=== PATIENT | female | born 1970 | race Two or more races ===

== ENCOUNTER 2017-12-25 12:59 | Emergency (ER) | payer MEDICARE, OTHER ==
[~2017-12-25] VITALS: Ht 167.6 cm; Wt 65.8 kg
[2017-12-25 13:06] VITALS: BP 137/97
--- NOTE | 2017-12-25 13:43 | NUR ---
CALLED FOR FOOD TRAY
[2017-12-25] MEDS ORDERED: IBUPROFEN 600 MG TABLET PO ONE ×2 (14:11→14:30)
== END 2017-12-25 16:08 | disposition home or self-care (01) ==
LOC: ER 13:00
DX: M54.5 Low back pain (principal); F17.200 Nicotine dependence, unspecified, uncomplicated; Z59.0 Homelessness; Z76.0 Encounter for issue of repeat prescription; Z60.2 Problems related to living alone
CPT/HCPCS: A4606; Z7610

== ENCOUNTER 2025-04-15 18:45 | Emergency (ER) | payer MEDICARE, OTHER ==
[~2025-04-15] VITALS: Ht 170.2 cm; Wt 54.4 kg
[2025-04-15] MEDS ORDERED: KETOROLAC TROMETHAMINE 15 MG/ML VIAL ONE (19:23)
[2025-04-15] MEDS ORDERED: ACETAMINOPHEN ES 500 MG TABLET ONE (19:23)
[2025-04-15] MEDS: IV NS 0.9% 1,000 ML BAG IV ONE (19:36)
[2025-04-15] MEDS: ACETAMINOPHEN ES 500 MG TABLET PO ONE (19:37)
[2025-04-15] MEDS: KETOROLAC TROMETHAMINE 15 MG/ML VIAL IV ONE (19:37)
[2025-04-15 19:41] LABS: APPEARANCE,URINE SLIGHTLY CLOUDY (CLEAR); BLOOD, URINE 1+ Ery/uL (NEGATIVE); LEUKOCYTE ESTERASE ,URINE NEGATIVE (NEGATIVE); NITRITE, URINE NEGATIVE (NEGATIVE); UGLUCOSE NEGATIVE (NEGATIVE)
[2025-04-15] MEDS ORDERED: IBUP-1490 PO (19:58)
[2025-04-15] MEDS ORDERED: FLUT16SP16 BNOSTRILS (20:10)
[2025-04-15 20:18] LABS: ADD URINE CULTURE NO
[2025-04-15 20:40] VITALS: BP 130/90; TEMP 98; O2SAT 97
== END 2025-04-15 20:41 | disposition home or self-care (01) ==
LOC: ER 18:45
DX: U07.1 COVID-19 (principal); J06.9 Acute upper respiratory infection, unspecified; B97.89 Other viral agents as the cause of diseases classified elsewhere; F17.200 Nicotine dependence, unspecified, uncomplicated
CPT/HCPCS: 99283; 96374; 96361; 87426; 87804; 81001; J1885; J7030; 87086-TC

== ENCOUNTER 2025-06-05 00:11 | Emergency (ER) | payer MEDICARE, OTHER ==
[~2025-06-05] VITALS: Ht 170.2 cm; Wt 54.4 kg
[~2025-06-05 00:11] MED LIST: FLUT16SP16 BNOSTRILS; IBUP-1490 PO
[2025-06-05 02:07] LABS: PLATELET COUNT (AUTO) 259 K/uL (150-450); RED BLOOD CELL COUNT(AUTO) 4.71 MIL/uL (4.0-5.2); RED CELL DISTRIBUTION WIDTH 12.6 % (11.5-15.0); WHITE BLOOD COUNT (AUTO) 7.9 K/uL (4.3-11.0)
[2025-06-05 02:08] LABS: APPEARANCE,URINE CLEAR (CLEAR); BLOOD, URINE TRACE-INTA Ery/uL (NEGATIVE); LEUKOCYTE ESTERASE ,URINE NEGATIVE (NEGATIVE); NITRITE, URINE NEGATIVE (NEGATIVE); UGLUCOSE NEGATIVE (NEGATIVE)
[2025-06-05 02:13] LABS: CALCIUM, SERUM 9.0 mg/dL (8.5-10.1); CREATININE 0.9 mg/dL (0.6-1.3); SODIUM SERUM 142.0 mmol/L (136-145); UREA NITROGEN, BLOOD 21.0 mg/dL (7-18)
[2025-06-05 02:20] LABS: ASPARTATE AMINOTRANSFERASE 14.0 U/L (15-37); TOTAL PROTEIN, SERUM 6.9 g/dL (6.4-8.2)
[2025-06-05 02:22] LABS: ADD URINE CULTURE NO; SQUAMOUS EPITHELIAL CELL,UR 0-2 /HPF (None Seen)
[2025-06-05] MEDS ORDERED: CT SWABBABLE VALVE TRANS SET 1 EA INFUS.SET MC ONE (02:50)
[2025-06-05] MEDS ORDERED: IV NS 0.9% 250 ML IV ONE (02:50)
[2025-06-05] MEDS ORDERED: IOHEXOL-300 100 ML VIAL IV ONE (02:51)
[2025-06-05] MEDS ORDERED: CEFTRIAXONE 1GM BAG (ER ONLY) 50 ML IV ONE (04:49)
[2025-06-05] MEDS ORDERED: CEPH500C2 PO (04:50)
[2025-06-05] MEDS: CEFTRIAXONE 1GM BAG (ER ONLY) 1 GM/50 ML PIGGYBACK IV ONE (04:50)
[2025-06-05 05:34] VITALS: BP 107/66; TEMP 97.9; O2SAT 100
== END 2025-06-05 05:35 | disposition home or self-care (01) ==
LOC: ER 00:15
DX: R33.9 Retention of urine, unspecified (principal); F17.200 Nicotine dependence, unspecified, uncomplicated; F31.9 Bipolar disorder, unspecified
CPT/HCPCS: 99285; 74177; 96365; 51702; 85025; 80048; 87086; 80076; 81001; 36415; J7050; J0696; Q9967

== ENCOUNTER 2025-06-17 00:29 | Emergency (ER) | payer MEDICARE, OTHER ==
[~2025-06-17] VITALS: Ht 170.2 cm; Wt 54.4 kg
[~2025-06-17 00:29] MED LIST changes: +CEPH500C2 PO
[2025-06-17 01:01] VITALS: BP 129/79; TEMP 98; O2SAT 96
== END 2025-06-17 01:23 | disposition home or self-care (01) ==
LOC: ER 00:33
DX: R33.9 Retention of urine, unspecified (principal); F31.9 Bipolar disorder, unspecified; F17.200 Nicotine dependence, unspecified, uncomplicated